=== PATIENT | male | born 1995 | race Caucasian/White ===

== ENCOUNTER 2020-01-30 18:46 | Emergency (ER) | payer OTHER, MEDICAID, SELFPAY ==
[2020-01-30 18:47] VITALS: BP 156/77; PULSE 98; RESP 18; TEMP 36.8; O2SAT 99; BMI 25.0
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
--- NOTE | 2020-01-30 19:11 | PC.NURSE ---
Dr. Thakur stated she didnt want CTs and Xrays ordered on pt and to cancel them
[2020-01-30 19:21] VITALS: BP 147/61; PULSE 91; RESP 16; TEMP 36.7; O2SAT 98
== END 2020-01-30 19:25 | disposition home or self-care (01) ==
PROVIDERS: Emergency Provider Emergency Medicine; PCP Internal Medicine
DX: S00.93XA Contusion of unspecified part of head, initial encounter (principal); S20.212A Contusion of left front wall of thorax, initial encounter; S20.211A Contusion of right front wall of thorax, initial encounter; S30.1XXA Contusion of abdominal wall, initial encounter; S40.011A Contusion of right shoulder, initial encounter; V28.0XXA Motorcycle driver injured in noncollision transport accident in nontraffic accident, initial encounter; Y92.410 Unspecified street and highway as the place of occurrence of the external cause; F17.210 Nicotine dependence, cigarettes, uncomplicated
CPT/HCPCS: 99281

== ENCOUNTER 2022-03-16 13:17 | Emergency (ER) | payer OTHER, SELFPAY ==
[2022-03-16 13:17] VITALS: BP 98/57; PULSE 112; RESP 18; TEMP 38.3; O2SAT 98; BMI 24.5
--- NOTE | 2022-03-16 13:24 | HMH.EDUTC ---
[facility] [place] Disposition Clinical Impression: Viral syndrome, Gastroenteritis Pharyngitis Qualifiers: Pharyngitis/tonsillitis etiology: unspecified etiology Qualified Code(s): J02.9 - Acute pharyngitis, unspecified Disposition: Home, Self-Care Condition on Discharge: Good Instructions: DI for COVID-19 (Suspected or Confirmed ), Preventing the Spread of Coronavirus Discharge Instructions Additional Instructions: Drink plenty of fluids. Take tylenol or ibuprofen for pain or fever. Take the medications as directed. Follow up with your regular doctor. GO TO THE ER FOR ANY WORSENING SYMPTOMS Quarantine until you know the results of your covid-19 test. Notify your school or workplace of your results and follow their instructions regarding return to work/school. Prescriptions: Brompheniramine/Pseudoephed/Dm [Bromfed Dm Cough Syrup] 5 ml PO Q6HP PRN #240 ml PRN Reason: Cough Transmission Status: Received by [facility] #[id number] Ibuprofen [Ibuprofen 600mg Tablet] 600 mg PO Q6HP PRN #30 tab PRN Reason: Mild Pain Transmission Status: Received by [facility] #[id number] Ondansetron [Zofran 4mg ODT] 4 mg PO Q8HP PRN #20 tab PRN Reason: Nausea Transmission Status: Received by [facility] #[id number] Referrals: Provider,Referral, MD [Primary Care Provider] - Forms: Work/School Release Time of Disposition: 14:29 Medical Decision Making - Medical Records Medical records reviewed: No: I reviewed the patient's medical records. - Ross Inquiry Pt receiving controlled substance: No Vital Signs: 03/16/22 13:17 03/16/22 14:36 Temperature 101.0 F H 99.9 F H Temperature Source Oral Oral Pulse Rate 100 H Pulse Rate [Brachial] 112 H Respiratory Rate 18 17 Blood Pressure 108/70 L Blood Pressure [Right Arm] 98/57 L Blood Pressure Mean [Right Arm] 70 Blood Pressure Source [Right Arm] Automatic Cuff Blood Pressure Position [Right Arm] Sitting 02 Sat by Pulse Oximetry 98 Oxygen Delivery Method Room Air - Lab Data Lab results reviewed: Yes: I reviewed the patient's lab results. Lab Results 03/16/22 14:15: Strep Scn Rapid Clinic Negative Orders (Tests/Meds): ED MEDICATIONS Discontinued Medications Generic Name Dose Route Start Last Admin Trade Name Felix PRN Reason Stop Dose Admin Ibuprofen 800 mg 03/16/22 14:05 03/16/22 14:14 Ibuprofen 400 Mg Tablet PO 03/16/22 14:06 800 mg ONCE ONE Administration Ondansetron HCl 4 mg 03/16/22 14:05 03/16/22 14:14 Ondansetron 4mg Odt SL 03/16/22 14:06 4 mg ONCE ONE Administration ORDERS Category Date Time Status Strep Screen Confirmation Stat Micro 03/16/22 14:15 Received [facility] [place] HPI - General Stated complaint: covid like symptoms Time Seen by Provider: 03/16/22 13:24 - History of Present Illness Provider Complaint: He states that he has had n/v/d and sore throat since last night. He denies abdominal pain. He has a headache and low grade fever also. - Related Data Previous Rx's Medication Instructions Recorded Amoxicillin/Potassium Clav 1 tab PO Q12H 10 Days #20 tab 08/13/19 [Augmentin 875-125 Tablet] Brompheniramine/Pseudoephed/Dm 5 ml PO Q6HP PRN 10 Days #180 ml 08/13/19 [Bromfed DM Cough Syrup 5mL] Brompheniramine/Pseudoephed/Dm 5 ml PO Q6HP PRN #240 ml 03/16/22 [Bromfed Dm Cough Syrup] Ibuprofen [Ibuprofen 600mg 600 mg PO Q6HP PRN #30 tab 03/16/22 Tablet] Ondansetron [Zofran 4mg ODT] 4 mg PO Q8HP PRN #20 tab 03/16/22 Allergies Allergy/AdvReac Type Severity Reaction Status Date / Time No Known Allergies Allergy Verified 01/13/18 09:[address] [facility] History - Hepatitis A Screen Attestation statement:: This patient has been screened for Hepatitis A risk factors. I have reviewed the patient's past medical history: Yes 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: Denies:: Diabetes Mellitus Type 1, Diabetes Mellitus Type 2 Laterality Cases: Bilateral: Tonsillectomy
[2022-03-16 14:25] LABS: UTC Strep Screen (Rapid) Negative (Negative)
[2022-03-16 14:36] VITALS: BP 108/70; PULSE 100; RESP 17; TEMP 37.7
== END 2022-03-16 14:38 | disposition home or self-care (01) ==
PROVIDERS: Emergency Provider Nurse Practitioner Family
DX: U07.1 COVID-19 (principal); K52.9 Noninfective gastroenteritis and colitis, unspecified; J02.9 Acute pharyngitis, unspecified
CPT/HCPCS: 87880; C9803; U0003; U0005

== ENCOUNTER 2022-08-11 12:46 | Emergency (ER) | payer OTHER, SELFPAY ==
[2022-08-11 14:30] VITALS: BP 118/83; PULSE 102; RESP 19; TEMP 38.9; O2SAT 98; BMI 24.0
[2022-08-11 15:08] LABS: Coronavirus 19, PCR Not Detected (NotDetected); Influenza B, PCR Not Detected (NotDetected)
--- NOTE | 2022-08-11 15:09 | EXP.UTC ---
Discharge Plan Disposition Patient Disposition: Home, Self-Care Condition: Good Prescriptions Prescriptions: New oseltamivir [Tamiflu] 75 mg capsule 75 mg PO BID 5 Days Qty: 10 0RF No Action amoxicillin-pot clavulanate 1 EACH tablet 1 tab PO Q12H 10 Days Qty: 20 0RF wmyfmapnrpjhmmy-rtrujqkuh-XB 473 ML syrup 5 ml PO Q6HP PRN (Reason: Cough) 10 Days Qty: 180 0RF ibuprofen 600 MG tablet 600 mg PO Q6HP PRN (Reason: Mild Pain) Qty: 30 0RF ypkbildvkuastdy-xsdpvscib-DQ 118 ML syrup 5 ml PO Q6HP PRN (Reason: Cough) Qty: 240 0RF ondansetron 4 MG tablet,disintegrating 4 mg PO Q8HP PRN (Reason: Nausea) Qty: 20 0RF Referrals Follow up/Referrals: Provider,Referral, MD [Primary Care Provider] - See instructions Activity Restrictions/Add. Instructions Additional Instructions/Restrictions: covid/FLU swab was sent to lab, call tomorrow for results. self isolate until test results are known to be negative No sign of a bacterial infection. Likely viral. Viruses can take 7-14 days to run their course. Nasal saline and bulb syringe or nose Jennifer to remove nasal drainage to help with nasal congestion. Hard to eat, drink, sleep with nasal congestion so important to keep this cleaned out. Monitor temp. Tylenol or Motrin as needed for pain or fever Encourage fluids, water, Gatorade, Powerade, Pedialyte if infant/toddler/child Warm salt water gargles Warm fluids Sore throat lozenges Sleep elevated Humidifier/vaporizer Follow-up immediately for new or worsening symptoms or no noticeable improvement over the next 48-72 hours. Stand Alone Forms Stand Alone Forms: Work/School Release Instructions Patient Instructions: DI for Viral Upper Respiratory Infection -- Adult Discharge ED Provider: Zane ([facility] [place] General Stated complaint: Flu exposure, fever, headache, cough, bodyaches Mode of Arrival: Ambulatory Source of Information: Patient Limitations: No Limitations Time Seen by Provider: 08/11/22 15:09 Description of Symptoms (Recalled from Triage Doc. by RN): PATIENT C/O FEVER, COUGH, CHILLS, BODY ACHES, HEADACHE, SOA, AND TIGHTNESS CHEST SINCE YESTERDAY. RECENTLY EXPOSED TO FLU HEENT Symptoms (Recalled from RN notes): No Resp Symptoms (Recalled from RN notes): No Skin Symptoms (Recalled from RN notes): No MS Symptoms (Recalled from RN notes): No Functional Status (Recalled from RN notes): WNL History of Present Illness Provider Complaint: 27 YR OLD MALE PRESENTS WITH C/O FEVER, COUGH, CHILLS, BODY ACHES, HEADACHE, SOA, AND TIGHTNESS CHEST SINCE YESTERDAY. RECENTLY EXPOSED TO FLU Related Data Previous Rx's Medication Instructions Recorded amoxicillin 875 mg-potassium 1 tab PO Q12H 10 days #20 tabs 08/13/19 clavulanate 125 mg tablet tfeetkrnmedpmae-ucgqnulixuvejfu-QY 5 ml PO Q6HP PRN Cough 10 days 08/13/19 2 mg-30 mg-10 mg/5 mL oral syrup #180 mL zmigwhjlmlvikeg-hoxtohdgbvudcvn-MV 5 ml PO Q6HP PRN Cough #240 mL 03/16/22 2 mg-30 mg-10 mg/5 mL oral syrup ibuprofen 600 mg tablet 600 mg PO Q6HP PRN Mild Pain #30 03/16/22 tabs ondansetron 4 mg disintegrating 4 mg PO Q8HP PRN Nausea #20 tabs 03/16/22 tablet oseltamivir 75 mg capsule (Tamiflu) 75 mg PO BID 5 days #10 caps 08/11/22 Allergies Allergy/AdvReac Type Severity Reaction Status Date / Time No Known Allergies Allergy Verified 01/13/18 09:45 Worker's Comp Is this a Worker's Comp case?: No [facility] Disclaimer: The information contained in this section may have been updated after the patient was seen, as this information can be updated by other users. 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
[2022-08-11 15:15] VITALS: BP 118/83; PULSE 102; RESP 19; TEMP 38.9; O2SAT 98
[2022-08-11 18:10] LABS: Influenza A, PCR Detected (NotDetected)
== END 2022-08-11 15:21 | disposition home or self-care (01) ==
PROVIDERS: Emergency Provider Nurse Practitioner Family
DX: J10.1 Influenza due to other identified influenza virus with other respiratory manifestations (principal)
CPT/HCPCS: 99212; C9803; G0463; U0003; U0005

== ENCOUNTER → 2022-10-08 16:17 | Outpatient (CLI) | payer OTHER, SELFPAY ==
[2022-10-10 22:09] LABS: Neisseria gonorrhoeae, NAA Negative (Negative)
== END ==
LOC: LAB.DROPOF 16:18
PROVIDERS: PCP Internal Medicine; Visit Provider Internal Medicine
DX: N45.3 Epididymo-orchitis (principal)
CPT/HCPCS: 87491; 87591

== ENCOUNTER → 2022-10-18 15:43 | Outpatient (CLI) | payer OTHER, SELFPAY ==
--- NOTE | 2022-10-18 15:49 | US_ITS ---
FINAL REPORT TECHNIQUE: Ultrasound images of the testicles were obtained bilaterally. Color Doppler images were obtained. CLINICAL HISTORY: L GROIN PAIN, R/O TORSIN FINDINGS: The right testicle measures 3.9 x 3.0 x 3.5 cm. The left testicle measures 5.4 x 2.8 x 3.2 cm. Arterial flow is identified bilaterally. No intratesticular masses are identified. There are small hydroceles bilaterally. IMPRESSION: No evidence of testicular torsion or mass. Reviewed, Interpreted and Dictated by Emery Norwood III, MD Transcribed by Lily Perry Authenticated and [facility]
== END ==
LOC: RAD 15:44
PROVIDERS: PCP Internal Medicine; Visit Provider Internal Medicine
DX: R10.30 Lower abdominal pain, unspecified (principal)
CPT/HCPCS: 76870

== ENCOUNTER 2023-08-16 13:13 | Emergency (ER) | payer OTHER, SELFPAY ==
[2023-08-16 13:40] VITALS: BP 126/83; PULSE 104; RESP 20; TEMP 37.8; O2SAT 97; BMI 26.1
--- NOTE | 2023-08-16 13:56 | EXP.UTC ---
Discharge Plan Disposition Patient Disposition: Home, Self-Care Condition: Good Prescriptions Prescriptions: No Action No Known Home Medications Referrals Follow up/Referrals: Oswaldo Yun MD [Primary Care Provider] - See instructions Activity Restrictions/Add. Instructions Additional Instructions/Restrictions: Drink plenty of fluids. Take tylenol or ibuprofen for pain or fever. Take the medications as directed. Follow up with your regular doctor. GO TO THE ER FOR ANY WORSENING SYMPTOMS Clinical Impressions Clinical Impression: Sinusitis, Acute viral syndrome Stand Alone Forms Stand Alone Forms: Work/School Release Instructions Patient Instructions: DI for Sinusitis, DI for Viral Syndrome Discharge ED Provider: Flavio West [facility] [place] HPI General Stated complaint: sore throat, congestion Mode of Arrival: Ambulatory Source of Information: Patient Limitations: No Limitations Time Seen by Provider: 08/16/23 13:56 Description of Symptoms (Recalled from Triage Doc. by RN): PATIENT C/O SORE THROAT, HEADACHE, BODY ACHES, NECK PAIN, TOOTH PAIN, EAR ACHE AND NASAL CONGESTION SINCE FRIDAY HEENT Symptoms (Recalled from RN notes): Yes Resp Symptoms (Recalled from RN notes): No Skin Symptoms (Recalled from RN notes): No MS Symptoms (Recalled from RN notes): No Functional Status (Recalled from RN notes): WNL History of Present Illness Provider Complaint: He states that for the past 3 days he has had sore throat, low grade fever, chills, body aches, and sinus congestion. Related Data Home Medications Medication Instructions Recorded Confirmed No Known Home Medications 08/16/23 08/16/23 Allergies Allergy/AdvReac Type Severity Reaction Status Date / Time No Known Allergies Allergy Verified 01/13/18 09:45 Worker's Comp Is this a Worker's Comp case?: No [facility] Disclaimer: The information contained in this section may have been updated after the patient was seen, as this information can be updated by other users. 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) Smoking Status: Current every day smoker tobacco type: cigarettes packs per day: 1 alcohol intake: never current occupational status: employed Travel in the last 8 weeks: None ROS Obtained: Yes All systems reviewed & no additional complaints except as documented Constitutional Constitutional: Reports poor appetite Eyes Eyes: Reports system reviewed and no additional complaints, except as documented ENT Ears, Nose, Mouth, and Throat: Reports as per HPI Cardiovascular Cardiovascular: Reports system reviewed and no additional complaints, except as documented and Denies chest pain Respiratory Respiratory: Denies shortness of breath, Denies chest congestion, Reports cough, Denies stridor and Denies wheezing Gastrointestinal Gastrointestingal: Reports system reviewed and no additional complaints, except as documented; Denies abdominal pain, diarrhea or vomiting Musculoskeletal Musculoskeletal: Reports system reviewed and no additional complaints, except as documented and Denies arthralgias Integumentary/Breasts Skin/Breast: Reports system reviewed and no additional complaints, except as documented and Denies rash Neurologic Neurologic: Denies paresthesias Allergic/Immunologic Allergic/Immunologic: Denies wheezing Physical Exam General General appearance: alert and in no apparent distress Eye Eye exam: Present normal appearance, PERRL and EOMI ENT ENT exam: Present mucous membranes moist and normal external ear exam Expanded ENT Exam External ear exam: Present normal external inspection TM/Canal exam: Bilateral TM: erythema and
[2023-08-16 13:59] LABS: UTC Strep Screen (Rapid) Negative (Negative)
[2023-08-16 14:00] LABS: UTC Influenza A Antigen Negative (Negative); UTC Influenza B Antigen Negative (Negative)
[2023-08-16 14:22] VITALS: BP 126/83; PULSE 104; RESP 20; TEMP 37.8; O2SAT 97
== END 2023-08-16 14:24 | disposition home or self-care (01) ==
PROVIDERS: Emergency Provider Nurse Practitioner Family; PCP Internal Medicine
DX: J01.90 Acute sinusitis, unspecified (principal); R07.0 Pain in throat; R51.9 Headache, unspecified; R09.81 Nasal congestion; R50.9 Fever, unspecified; H92.09 Otalgia, unspecified ear; M79.18 Myalgia, other site; M54.2 Cervicalgia; F17.210 Nicotine dependence, cigarettes, uncomplicated
CPT/HCPCS: 87635; 87804; 87880; 99212; 99214; G0463

== ENCOUNTER 2024-04-25 18:21 | Emergency (ER) | payer BC, SELFPAY ==
[2024-04-25 19:37] VITALS: BP 113/59; PULSE 86; RESP 18; TEMP 37.4; O2SAT 96; BMI 26.5
--- NOTE | 2024-04-25 19:39 | EXP.UTC ---
Discharge Plan Disposition Patient Disposition: Home, Self-Care Condition: Good Prescriptions Prescriptions: New amoxicillin 875 mg tablet 875 mg PO Q12H Qty: 20 0RF daqagejdxaaxmfq-fpmeragop-TM [Bromfed DM] 2-30-10 mg/5 mL Syrup 5 ml PO Q6H PRN (Reason: Cough) Qty: 240 0RF No Action hydroxyzine HCl 25 mg tablet 25 mg PO QID PRN (Reason: anxiety) Qty: 30 1RF sertraline 50 mg tablet 50 mg PO DAILY Qty: 30 2RF Referrals Follow up/Referrals: Oswaldo Yun MD [Primary Care Provider] - See instructions Activity Restrictions/Add. Instructions Additional Instructions/Restrictions: Drink plenty of fluids. Take tylenol or ibuprofen for pain or fever. Take the medications as directed. Follow up with your regular doctor. GO TO THE ER FOR ANY WORSENING SYMPTOMS Clinical Impressions Clinical Impression: Viral syndrome Pharyngitis Qualifiers: Pharyngitis/tonsillitis etiology: unspecified etiology Qualified Code(s): J02.9 - Acute pharyngitis, unspecified Stand Alone Forms Stand Alone Forms: Work/School Release Instructions Patient Instructions: Sore Throat, DI for Pharyngitis/Tonsillopharyngitis -- Adult, DI for Viral Syndrome Print Language Print Language: [place] Discharge ED Provider: Flavio West [facility] General Stated complaint: muscle pain fever sore throat Time Seen by Provider: 04/25/24 19:39 History of Present Illness Provider Complaint: He states that for the past 2 days he has had sore throat, sinus congestion, chills and body aches. Related Data Previous Rx's ?Medication ?Instructions ?Recorded hydroxyzine HCl 25 mg tablet 25 mg PO QID PRN anxiety #30 tabs 03/02/24 sertraline 50 mg tablet 50 mg PO DAILY #30 tabs 03/02/24 amoxicillin 875 mg tablet 875 mg PO Q12H #20 tabs 04/25/24 xojdotmxnkeuqof-moegnvvzbldgvmg-KS 5 ml PO Q6H PRN Cough #240 mL 04/25/24 2 mg-30 mg-10 mg/5 mL oral syrup (Bromfed DM) Allergies Allergy/AdvReac Type Severity Reaction Status Date / Time No Known Allergies Allergy Verified 04/05/24 10:21 [facility] Disclaimer: The information contained in this section may have been updated after the patient was seen, as this information can be updated by other users. 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 Depression Depression Anxiety Surgical History History of endoscopy History of colonoscopy History of tonsillectomy Social History Smoking Status: Current every day smoker tobacco type: cigarettes packs per day: 1 alcohol intake: never current occupational status: employed Travel in the last 8 weeks: None ROS Obtained: Yes All systems reviewed & no additional complaints except as documented Constitutional Constitutional: Reports chills and Reports fever(s) Eyes Eyes: Denies eye discharge ENT Ears, Nose, Mouth, and Throat: Reports as per HPI Cardiovascular Cardiovascular: Denies chest pain Respiratory Respiratory: Denies chest congestion and Reports cough Gastrointestinal Gastrointestingal: Reports nausea; Denies abdominal pain, constipation, cramping, diarrhea or vomiting Musculoskeletal Musculoskeletal: Denies arthralgias Integumentary/Breasts Skin/Breast: Denies rash Neurologic Neurologic: Denies paresthesias Physical Exam General General appearance: alert and in no apparent distress Head Head exam: atraumatic, normocephalic and normal inspection Eye Eye exam: Present normal appearance, PERRL and EOMI ENT ENT exam: Present mucous membranes moist and normal external ear exam Expanded ENT Exam TM/Canal exam: Bilateral TM: erythema and bulging Nose exam: Absent sinus tenderness Mouth exam: Present normal external inspection; Absent drooling Teeth exam: Present normal inspection Throat exam: Present tonsillar erythema, tonsillomegaly and tonsillar exudate Neck Neck exam: Pre
[2024-04-25 19:45] LABS: UTC Strep Screen (Rapid) Negative (Negative)
[2024-04-25 20:06] VITALS: BP 113/59; PULSE 86; RESP 18; TEMP 37.4; O2SAT 96
== END 2024-04-25 20:06 | disposition home or self-care (01) ==
PROVIDERS: Emergency Provider Nurse Practitioner Family; PCP Internal Medicine
DX: J02.9 Acute pharyngitis, unspecified (principal); R09.81 Nasal congestion; B34.9 Viral infection, unspecified
CPT/HCPCS: 87635; 87880; 99212; 99214; G0463

== ENCOUNTER 2024-12-27 14:22 | Outpatient (CLI) | payer BC, SELFPAY ==
[2024-12-27 15:53] LABS: Chloride 105 mmol/L (98-107); Potassium 4.1 mmoL/L (3.5-5.1); Sodium 139 mmol/L (136-145)
[2024-12-27 15:55] LABS: Blood Urea Nitrogen 13 mg/dl (9-20); Estimated Glomerular Filt Rate 100 ml/min (>60); GFR (African American) 121 ML/MIN (>60)
[2024-12-27 15:56] LABS: Anion Gap 12.1 mEq/L (5-15); Calcium 9.4 mg/dl (8.4-10.2); Carbon Dioxide 26 mmol/L (22.0-30.0); Chol/HDL Ratio 3.6 (1-3.5); Cholesterol 153 mg/dl (140-200); Glucose 72 mg/dl (74-100); HDL Cholesterol 42 mg/dl (40-60); Triglycerides 196 mg/dl (30-150); VLDL Cholesterol 39 mg/dL (0-40)
[2024-12-27 16:07] LABS: Direct LDL Cholesterol 44.34 mg/dL (100-129)
[2024-12-28 13:12] LABS: Testosterone,Total 154 ng/dL (264-916)
== END 2024-12-27 23:59 | disposition home or self-care (01) ==
LOC: LAB.DROPOF 14:22
PROVIDERS: PCP Internal Medicine; Visit Provider Internal Medicine
DX: E87.0 Hyperosmolality and hypernatremia (principal); E78.5 Hyperlipidemia, unspecified; R79.89 Other specified abnormal findings of blood chemistry; R73.09 Other abnormal glucose
CPT/HCPCS: 80048; 80061; 84403

== ENCOUNTER 2025-03-07 14:03 | Outpatient (CLI) | payer BC, SELFPAY ==
--- OUTSIDE RECORDS SUMMARY | 2025-03-07 14:06 | XMS_ITS | Clinical Summary ---
Author Organization Healthcare Address [address] [place] [address] Care Team Providers Care Coke Drawer Name Role Phone Oswaldo Yun MD Primary Care Provider [phone] Family History 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 Relation Name Comments Anxiety disorder Father Atrial fibrillation Maternal Grandmother Diabetes Maternal Grandmother Tachycardia Maternal Grandmother Diabetes Mother Hyperlipidemia Mother Hypertension Mother Cardiac disorder Paternal Grandmother Liver cancer Paternal Grandmother Relation Name Status Comments Father Maternal Grandmother Mother Paternal Grandmother Social History Tobacco Use Types Packs/Day Years Used Date Smoking Tobacco: Every Day Alcohol Use Standard Drinks/Week Comments No 0 (1 standard drink = 0.6 oz pur e alcohol) Sex and Gender Information Value Date Recorded Sex Assigned at Not on file Legal Sex Male 6:31 PM EDT Gender Identity Not on file Sexual Orientation Not on file Last Filed Vital Signs Vital Sign Reading Time Taken Comments Blood Pressure - - Pulse - - Temperature - - Respiratory Rate - - Oxygen Saturation - - Inhaled Oxygen Concentration - - Weight 82.1 kg (181 lb) 02/02/2014 2:13 PM EDT Height 177.8 cm (5' 10 ) 02/02/2014 2:13 PM EDT Body Mass Index 25.97 02/02/2014 2:13 PM EDT Plan of Treatment Not on file Care Teams Coke Drawer Relationship Specialty Start Date End Date Oswaldo Yun MD [address] [facility] [address] [place] [address] PCP - General 01/12/21
[2025-03-08 08:32] LABS: FSH 1.2 mIU/mL (1.5-12.4); LH 4.1 mIU/mL (1.7-8.6); Testosterone,Total 223 ng/dL (264-916)
== END 2025-03-07 23:59 | disposition home or self-care (01) ==
LOC: LAB.DROPOF 14:03
PROVIDERS: PCP Internal Medicine; Visit Provider Internal Medicine
DX: R79.89 Other specified abnormal findings of blood chemistry (principal)
CPT/HCPCS: 83001; 83002; 84146; 84403

== ENCOUNTER 2025-05-18 10:00 | Outpatient (CLI) | payer BC, SELFPAY ==
[2025-05-18 14:58] LABS: Anion Gap 14.1 mEq/L (5-15); Blood Urea Nitrogen 14 mg/dl (9-20); Calcium 9.4 mg/dl (8.4-10.2); Carbon Dioxide 28 mmol/L (22.0-30.0); Chloride 103 mmol/L (98-107); Creatinine,Serum 0.80 mg/dl (0.66-1.25); Estimated Glomerular Filt Rate 114 ml/min (>60); GFR (African American) 137 ML/MIN (>60); Glucose 84 mg/dl (74-100); Potassium 5.1 mmoL/L (3.5-5.1); Sodium 140 mmol/L (136-145)
--- OUTSIDE RECORDS SUMMARY | 2025-05-19 10:08 | XMS_ITS | Clinical Summary ---
Author Organization Healthcare Address [address] [place] [address] Care Team Providers Care Cuff Setter Name Role Phone Oswaldo Yun MD Primary Care Provider [phone] Family History 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 Relation Name Comments [...] of Treatment Not on file Care Teams Cuff Setter Relationship Specialty Start Date End Date Oswaldo Yun MD [address] [facility] [address] [place] [address] PCP - General 01/12/21
[2025-05-20 08:33] LABS: Testosterone,Total 471 ng/dL (264-916)
== END 2025-05-18 23:59 | disposition home or self-care (01) ==
LOC: LAB.DROPOF 05-19 10:05
PROVIDERS: PCP Internal Medicine; Visit Provider Internal Medicine
DX: R25.2 Cramp and spasm (principal); R79.89 Other specified abnormal findings of blood chemistry
CPT/HCPCS: 80048; 84403